=== PATIENT | female | born 1995 | race Two or more races ===

== ENCOUNTER 2018-06-03 12:14 | Emergency (ER) | payer MEDICAID ==
[~2018-06-03] VITALS: Ht 162.6 cm; Wt 95.3 kg
[2018-06-03 13:06] LABS: Urine Bacteria FEW /hpf (None Seen); Urine Blood Negative /uL (Negative); Urine Mucus FEW (None Seen); Urine Specific Gravity 1.031 (1.001-1.035); Urine WBC 1 /hpf (0 - 5)
[2018-06-03 14:37] VITALS: BP 109/60
== END 2018-06-03 14:07 | disposition home or self-care (01) ==
LOC: ER 12:19
DX: O26.892 Other specified pregnancy related conditions, second trimester (principal); Z3A.19 19 weeks gestation of pregnancy
CPT/HCPCS: 76805; 81001

== ENCOUNTER 2018-06-22 12:25 | Observation (INO) | payer MEDICAID ==
[2018-06-22 14:35] LABS: Urine Bacteria FEW /hpf (None Seen); Urine Blood Negative /uL (Negative); Urine Mucus FEW (None Seen); Urine Specific Gravity 1.026 (1.001-1.035); Urine WBC <1 /hpf (0 - 5)
== END 2018-06-22 13:45 | disposition home or self-care (01) | DRG 566 ==
LOC: LDRP 12:25
PROVIDERS: ADMIT Obstetrics & Gynecology; ATTEND Obstetrics & Gynecology
DX: O36.8120 Decreased fetal movements, second trimester, not applicable or unspecified (principal); O26.892 Other specified pregnancy related conditions, second trimester; H53.8 Other visual disturbances; R10.30 Lower abdominal pain, unspecified; N89.8 Other specified noninflammatory disorders of vagina; R51 Headache; Z3A.21 21 weeks gestation of pregnancy
CPT/HCPCS: 59025; 81001; 81002; G0378

== ENCOUNTER 2018-07-21 23:37 | Observation (INO) | payer MEDICAID ==
[2018-07-22] MEDS ORDERED: [UNRECOGNIZED DRUG - CODE] GT (02:00)
[2018-07-22] MEDS ORDERED: PREN-153 OR (02:01)
== END 2018-07-22 01:04 | disposition home or self-care (01) | DRG 566 ==
LOC: LDRP 23:37
PROVIDERS: ADMIT Specialist; ATTEND Specialist
DX: O36.8130 Decreased fetal movements, third trimester, not applicable or unspecified (principal); Z3A.26 26 weeks gestation of pregnancy
CPT/HCPCS: 59025; 81002; G0378

== ENCOUNTER 2018-09-26 01:48 | Emergency (ER) | payer MEDICAID ==
[~2018-09-26] VITALS: Ht 157.5 cm; Wt 104.3 kg
[~2018-09-26 01:48] MED LIST: PREN-153 OR; [UNRECOGNIZED DRUG - CODE] GT
[2018-09-26 02:51] LABS: Basophils # (auto) 0 uL; Basophils % (auto) 0.3 % (0.0-2.0); Eosinophils # (auto) 0.1 uL; Eosinophils % (auto) 1.3 % (0.0-7.0); Hematocrit 33.6 % (36.0-46.0); Lymphocytes # (auto) 1.9 uL; Lymphocytes % (auto) 23.8 % (10.0-50.0); Mean Corpuscular Hemoglobin 26.3 pg (28.0-32.0); Mean Corpuscular Hgb Conc. 32.8 g/dL (32.0-36.0); Mean Corpuscular Volume 80.1 fL (80.0-100.0); Monocytes # (auto) 0.7 uL; Monocytes % (auto) 8.3 % (0.0-12.0); Neutrophils # (auto) 5.4 uL; Neutrophils % (auto) 66.3 % (37.0-80.0); Nucleated Red Blood Cells % 0.1 %; Platelet Count (auto) 131 10^3/uL (140-450); Red Blood Cells 4.19 10^6/uL (4.0-5.20); Red Cell Distribution Width 14.9 % (11.8-14.3); White Blood Cell 8.2 10^3/uL (4.4-10.8)
[2018-09-26 02:54] LABS: Chloride 111 mmol/L (98-107); Potassium 4.1 mmol/L (3.5-5.1); Sodium 142 mmol/L (136-145)
[2018-09-26 02:55] LABS: Alanine Aminotransferase 13 U/L (13-56); Albumin 2.2 g/dL (3.4-5.0); Alkaline Phosphatase 85 U/L (45-117); Anion Gap 9 (5-15); Aspartate Aminotransferase 11 U/L (15-37); BUN/Creatinine Ratio 17.9; Bilirubin, Total 0.2 mg/dL (0.2-1.0); Blood Urea Nitrogen 7 mg/dL (7-18); Calcium 8.1 mg/dL (8.5-10.1); Carbon Dioxide 22 mmol/L (21-32); GFR African American 260 mL/min; GFR Non-African American 215 mL/min; Glucose 77 mg/dL (74-106)
[2018-09-26 03:15] LABS: INR 0.88 (0.9-1.15); Partial Thromboplastin Time 25.9 sec (23.78-33.04); Prothrombin Time 9.5 sec (9.27-12.13)
[2018-09-26 03:38] LABS: Magnesium 1.8 mg/dL (1.6-2.6)
[2018-09-26 04:10] VITALS: BP 109/64
== END 2018-09-26 05:06 | disposition home or self-care (01) ==
LOC: ER 01:50
DX: O26.893 Other specified pregnancy related conditions, third trimester (principal); R07.89 Other chest pain; K21.9 Gastro-esophageal reflux disease without esophagitis; Z88.2 Allergy status to sulfonamides; Z79.899 Other long term (current) drug therapy; Z3A.33 33 weeks gestation of pregnancy
CPT/HCPCS: 36415; 71045; 80053; 83735; 83880; 84443; 84484; 85025; 85379; 85610; 85730; 93005; 94761

== ENCOUNTER 2018-10-19 19:54 | Observation (INO) | payer MEDICAID | END 2018-10-19 23:32 | disposition home or self-care (01) | DRG 566 | LOC: LDRP 19:54 | PROVIDERS: ADMIT Obstetrics & Gynecology; ATTEND Obstetrics & Gynecology | DX: O42.913 Preterm premature rupture of membranes, unspecified as to length of time between rupture and onset of labor, third trimester (principal); Z3A.38 38 weeks gestation of pregnancy | CPT/HCPCS: 59025; 76815; 81002; G0378 ==

== ENCOUNTER 2018-10-24 09:45 | Observation (INO) | payer MEDICAID | END 2018-10-24 11:00 | disposition home or self-care (01) | DRG 566 | LOC: LDRP 09:45 | PROVIDERS: ADMIT Obstetrics & Gynecology; ATTEND Obstetrics & Gynecology | DX: O62.9 Abnormality of forces of labor, unspecified (principal); Z3A.39 39 weeks gestation of pregnancy | CPT/HCPCS: 59025; 81002; G0378 ==

== ENCOUNTER 2018-10-26 13:25 | Inpatient (IN) | payer MEDICAID ==
[~2018-10-26] VITALS: Ht 162.6 cm; Wt 108.0 kg
[2018-10-26] MEDS ORDERED: PHISODERM TOP SOLN 240ML BTL TOP PRN (15:00)
[2018-10-26] MEDS ORDERED: NALBUPHINE HCL 10 MG/1ml INJECTION IV PRN (15:00)
[2018-10-26] MEDS ORDERED: WITCH HAZEL-GLYCERIN PAD TOP PRN (15:00)
[2018-10-26] MEDS ORDERED: PENICILLIN G POT 5MIL/D5 50ML 50 ML IV ONE ×2 (15:00→16:18)
[2018-10-26] MEDS ORDERED: METHYLERGONOVINE MALEATE 0.2 MG/ML AMP IM PRN (15:00)
[2018-10-26] MEDS ORDERED: DERMOPLAST 60ML BOTTLE TOP PRN (15:00)
[2018-10-26] MEDS ORDERED: LACTATED RINGER'S 1,000 ML IV SCH (15:00)
[2018-10-26] MEDS ORDERED: LIDOCAINE 2%HCL (LOCAL ANESTH.) INJ 20ML MDV ID ONE (15:00)
[2018-10-26] MEDS ORDERED: LACT. RINGERS/OXYTOCIN 20UNITS 1,000 ML IV SCH (15:00)
[2018-10-26 15:41] LABS: Basophils # (auto) 0 uL; Eosinophils # (auto) 0.1 uL; Eosinophils % (auto) 0.7 % (0.0-7.0); Hemoglobin 11.6 g/dL (12.2-16.2); Nucleated Red Blood Cells % 0.1 %
[2018-10-26 15:43] LABS: Basophils % (auto) 0.5 % (0.0-2.0); Hematocrit 35.7 % (36.0-46.0); Lymphocytes # (auto) 1.7 uL; Lymphocytes % (auto) 17.3 % (10.0-50.0); Mean Corpuscular Hemoglobin 25.3 pg (28.0-32.0); Mean Corpuscular Hgb Conc. 32.6 g/dL (32.0-36.0); Mean Corpuscular Volume 77.8 fL (80.0-100.0); Monocytes # (auto) 0.6 uL; Monocytes % (auto) 6.7 % (0.0-12.0); Neutrophils # (auto) 7.2 uL; Neutrophils % (auto) 74.8 % (37.0-80.0); Platelet Count (auto) 151 10^3/uL (140-450); Red Blood Cells 4.59 10^6/uL (4.0-5.20); Red Cell Distribution Width 15.9 % (11.8-14.3); White Blood Cell 9.6 10^3/uL (4.4-10.8)
[2018-10-26 15:54] LABS: INR 0.88 (0.9-1.15); Partial Thromboplastin Time 24.1 sec (23.78-33.04); Prothrombin Time 9.5 sec (9.27-12.13)
[2018-10-26 15:56] LABS: Albumin 2.5 g/dL (3.4-5.0); Calcium 8.1 mg/dL (8.5-10.1); Potassium 4.1 mmol/L (3.5-5.1)
[2018-10-26 15:59] LABS: Bilirubin, Total 0.2 mg/dL (0.2-1.0); Total Protein 6.5 g/dL (6.4-8.2)
[2018-10-26] MEDS ORDERED: PROMETHAZINE HCL 25 MG/ML 1ML ONE (18:37)
[2018-10-26 18:58] LABS: Urine Bacteria NONE SEEN /hpf (None Seen); Urine Blood TRACE /uL (Negative); Urine Mucus FEW (None Seen); Urine Specific Gravity 1.029 (1.001-1.035); Urine WBC 1 /hpf (0 - 5)
[2018-10-26] MEDS ORDERED: PENICILLIN G POTASSIUM 2,500,000 UNITS in D5W 5% 50 ML IV SCH (19:00)
[2018-10-26 19:14] LABS: Alcohol, Urine < 3.0 mg/dL (0-5); Amphetamine Screen, Urine NEGATIVE (NEGATIVE); Barbiturate Scree,Urine NEGATIVE (NEGATIVE); Benzodiazephine Screen, Urine NEGATIVE (NEGATIVE); Cannabinoid Screen, Urine NEGATIVE (NEGATIVE); Cocaine Screen, Urine NEGATIVE (NEGATIVE); Opiate Scree,Urine NEGATIVE (NEGATIVE); Phencyclidine Screen, Urine NEGATIVE (NEGATIVE)
[2018-10-26] MEDS ORDERED: IBUPROFEN 600 MG TAB PO ONE ×2 (20:36→23:44)
[2018-10-26 23:00] VITALS: BP 111/55
--- NOTE | 2018-10-26 23:30 | NUR ---
Ambulation: Patient OOB with standby assistance by RN. Patient ambulated to bathroom with steady gait. Patient able to void without difficulty. [facility] teaching provided with returned demonstration by patient. Clean gown provided and bed linen changed. Patient ambulated back to bed with steady gait and no distress noted.
[2018-10-26] MEDS ORDERED: LACT. RINGERS/OXYTOCIN 20UNITS 1,000 ML IV ONE (23:33)
[2018-10-26] MEDS ORDERED: ACETAMINOPHEN 325 MG TAB PO PRN (23:45)
--- NOTE | 2018-10-27 02:00 | NUR ---
Teaching: Reviewed information in [facility] booklet with patient. Discussed benefits of and risks associated with not . Discussed different positions, proper latch, feeding cues, and baby-led . Provided information of medication side effects related to . All questions and concerns addressed at this time. Patient verbalized understanding of information.
[2018-10-27 03:20] VITALS: BP 102/59
[2018-10-27] MEDS: IBUPROFEN 600 MG TAB PO PRN ×4 (04:35→22:03)
[2018-10-27 06:41] VITALS: BP 111/60
[2018-10-27 07:06] LABS: RPR Non Reactive (Non Reactive)
[2018-10-27 11:10] VITALS: BP 97/56
--- NOTE | 2018-10-27 14:30 | NUR ---
Saline locked removed with sterile technique, catheter fully intact. Pressure dressing applied to site. Patient tolerated procedure well.
[2018-10-27 15:30] VITALS: BP 107/71
[2018-10-27 19:00] VITALS: BP 94/60
[2018-10-27 23:00] VITALS: BP 98/55
[2018-10-28 02:56] VITALS: BP 103/51
[2018-10-28 07:05] VITALS: BP 105/58
[2018-10-28] MEDS: IBUPROFEN 600 MG TAB PO PRN (07:45)
[2018-10-28 10:50] VITALS: BP 130/79
--- NOTE | 2018-10-28 11:30 | NUR ---
Discharge: Discharge instructions given as ordered. Pt encouraged to follow up with [facility] as instructed. All questions and concerns addressed. Patient verbalized understanding. Medication reconciliation completed and copy given to patient. Patient encouraged to prepare to depart unit.
--- NOTE | 2018-10-28 12:33 | NUR ---
Discharge: Patient taken to vehicle via ambulatory with steady gait with all personal belongings, accompanied by staff and family member. No distress noted at time of departure, no adverse changes in status since initial assessment.
== END 2018-10-28 12:33 | disposition home or self-care (01) | DRG 560 ==
LOC: OBSVTOIN 13:25 → LDRP 13:25
PROVIDERS: ADMIT Obstetrics & Gynecology; ATTEND Obstetrics & Gynecology
PROC: 10E0XZZ Delivery of Products of Conception, External Approach (ICD-10-PCS; principal; 2018-10-26)
PROC: 0HQ9XZZ Repair Perineum Skin, External Approach (ICD-10-PCS; 2018-10-26)
DX: O69.81X0 Labor and delivery complicated by cord around neck, without compression, not applicable or unspecified (principal); O70.0 First degree perineal laceration during delivery; Z37.0 Single live birth; Z3A.39 39 weeks gestation of pregnancy; Z88.2 Allergy status to sulfonamides
CPT/HCPCS: 36415; 59025; 59409; 80053; 80307; 81001; 81002; 85025; 85610; 85730; 86592; 86850; 86900; 86901; 94760; 96365; 96366; G0378; J2540; J2590; J7060